=== PATIENT | female | born 1965 | race Caucasian/White ===

== ENCOUNTER 2017-06-06 10:46 | Emergency (ER) | payer MEDICARE ==
[~2017-06-06] VITALS: Ht 167.6 cm; Wt 88.0 kg
[~2017-06-06 10:46] MED LIST: CLON.5 PO; CYMB60CA PO; METH500T3 PO; NAPR550 PO; RISP0.5T2 PO; SYNT88TA PO; TAB-TAB PO
[2017-06-06 10:49] VITALS: BP 127/84; PULSE 88; RESP 20; TEMP 97.6; O2SAT 98
--- NOTE | 2017-06-06 11:32 | PD ---
HPI Chief Complaint: Psychiatric Symptoms Time Seen by Provider: 11:29 Travel History International Travel<30 days: No Contact w/Intl Traveler<30days: No Traveled to known affect area: No History of Present Illness HPI 51-year-old female that presents to the ED for evaluation of psych evaluation. Patient has a chronic history depression with suicidal ideations in the past an actual attempts. She denies any plans or suicidal ideation at this time. She comes here voluntarily after her doctor Dr. Donovan from psychiatry apparently sent her here for evaluation. She does take multiple psychiatric medications and states that she's been dealing with depression for multiple years. Per patient is become more severe in the past couple of weeks as well as months secondary to recent stresses in her life. Per patient was getting out of hand and she was seen by her psychiatrist today who recommended that she comes here to get evaluated. She was not [place] acted. She denies any substance abuse. No other medical issues. PFSH Past Medical History Arthritis: No Asthma: Yes (allergy related) Blood Disorders: No Bipolar Disorder: Yes Anxiety: Yes Depression: Yes Cancer: No Cardiovascular Problems: No High Cholesterol: No Chest Pain: No Congestive Heart Failure: No COPD: No Cerebrovascular Accident: No Diminished Hearing: Yes (BILATERAL ) Endocrine: Yes (GRAVES, HYPOGLYCEMIA) Gastrointestinal Disorders: Yes GERD: Yes Genitourinary: No Headaches: No Hepatitis: No Hiatal Hernia: No Hypertension: No Immune Disorder: No Implanted Vascular Access Dvce: No Kidney Stones: No Musculoskeletal: No Neurologic: No Psychiatric: Yes (HX OF PSYCHOSIS, SUICIDAL THOUGHTS ) Reproductive: Yes Respiratory: Yes Migraines: No Myocardial Infarction: No Renal Failure: No Seizures: No Sleep Apnea: No Thyroid Disease: Yes (graves) Ulcer: No Tetanus Vaccination: < 5 Years Influenza Vaccination: No ?: Not Tubal Ligation: Yes Past Surgical History Abdominal Surgery: No Appendectomy: No Cardiac Surgery: No Cholecystectomy: No Ear Surgery: No Endocrine Surgery: No Eye Surgery: Yes (surgery to left eye at [age] years old) Genitourinary Surgery: No Gynecologic Surgery: Yes (tubaligation) Hysterectomy: Yes (LAST 11/12/08) Neurologic Surgery: No Oral Surgery: No Thoracic Surgery: No Other Surgery: Yes Social History Alcohol Use: No Tobacco Use: Yes (1 ppd) Substance Use: No Allergies-Medications (Allergen,Severity, Reaction): Coded Allergies: Penicillin (Verified Allergy, Severe, HIVES, 06/06/17) Reported Meds & Prescriptions Reported Meds & Active Scripts Active Robaxin (Methocarbamol) 500 Mg Tab 500 Mg PO QID Anaprox Ds (Naproxen Sodium) 550 Mg Tab 550 Mg PO BID Reported Risperdal (Risperidone) 0.5 Mg Tab 0.5 Mg PO HS Multivitamin (Multivitamins) 1 Tab Tab 1 Tab PO DAILY Synthroid (Levothyroxine Sodium) 88 Mcg Tab 88 Mcg PO DAILY Cymbalta (Duloxetine HCl) 60 Mg Cap 60 Mg PO DAILY Klonopin (Clonazepam) 0.5 Mg Tab 0.5 Mg PO TID Review of Systems Except as stated in HPI: all other systems reviewed are Neg Physical Exam Narrative GENERAL: SKIN: Warm and dry. HEAD: Atraumatic. Normocephalic. EYES: Pupils equal and round. No scleral icterus. No injection or drainage. ENT: No nasal bleeding or discharge. Mucous membranes pink and moist. Tongue is midline. No uvula deviation. NECK: Trachea midline. No JVD. CARDIOVASCULAR: Regular rate and rhythm. No murmurs, S3, S4. RESPIRATORY: No accessory muscle use. Clear to auscultation. Breath sounds equal bilaterally. GASTROINTESTINAL: Abdomen soft, non-tender, nondistended. Hepatic and splenic margins not palpable. MUSCULOSKELETAL: Extremities without clubbing, cyanosis, or edema. No obvious deformities. Full range of motion of the upper and lower extremities bilaterally. 2+ pulses bilaterally. NEUROLOGICAL: Awake and alert. No obvious cranial nerve deficits. Motor grossly within normal limits. Five out of 5 muscle strength in the arms and legs. Normal speech. PSYCHIATRIC: Appropriate mood and affect; insight and judgment normal. Data Data Last Documented VS Vital Signs Date Time Temp Pulse Resp B/P Pulse Ox O2 Delivery O2 Flow Rate FiO2 06/06/17 10:49 97.6 88 20 127/84 98 Room Air Orders Complete Blood Count With Diff (06/06/17 11:02) Comprehensive Metabolic Panel (06/06/17 11:02) Psych Screen (06/06/17 11:02) Drug Screen, Random Urine (06/06/17 11:02) Alcohol (Ethanol) (06/06/17 11:02) MDM Medical Decision Making Medical Screen Exam Complete: Yes Emergency Medical Condition: Yes Medical Record Reviewed: Yes Differential Diagnosis Depression versus suicidal ideation versus anxiety versus adjustment disorder versus mood disorder versus bipolar disorder versus schizophrenia versus paranoid disorder versus psychosis versus substance abuse versus alcohol abuse versus alcohol induced psychosis versus homicidality addition versus cutting versus personality disorder Narrative Course 51-year-old female that presents to the ED for evaluation of psychiatric illness. Patient was properly examined and was found to have signs and symptoms consistent appears to be psychiatric illness. No sign of acute medical distress. Labs were drawn. Patient was medically cleared. Okay to be seen by psych. I had the ED nurse call [facility] nurse to let them know that this patient was sent by psychiatrist Dr. Donovan. Mental health screening was discussed with the patient. Diagnosis Primary Impression: Depression Qualified Code: F33.1 - Moderate episode of recurrent major depressive disorder Reg Garcia Jun 06, 2017 11:32
[2017-06-06 12:06] LABS: AUTOMATED NEUTROPHIL # 3.5 TH/MM3 (1.8-7.7); BASOPHIL # 0.1 TH/MM3 (0-0.2); BASOPHIL % 1.1 % (0.0-2.0); EOSINOPHIL # 0.3 TH/MM3 (0-0.4); EOSINOPHIL % 4.5 % (0.0-4.0); HEMATOCRIT 41.4 % (35.0-46.0); HEMO FLAGS DIFF FINAL; LYMPH % 33.3 % (9.0-44.0); LYMPHOCYTE # 2.1 TH/MM3 (1.0-4.8); MEAN CELL VOLUME 88.2 FL (80.0-100.0); MEAN CORPUSCULAR HEMOGLOBIN 29.7 PG (27.0-34.0); MEAN CORPUSCULAR HGB CONC 33.7 % (32.0-36.0); MONO % 6.5 % (0.0-8.0); NEUT % 54.6 % (16.0-70.0); PLATELET COUNT 225 TH/MM3 (150-450); RED BLOOD COUNT 4.69 MIL/MM3 (4.00-5.30); RED CELL DISTRIBUTION WIDTH 13.1 % (11.6-17.2); WHITE BLOOD COUNT 6.4 TH/MM3 (4.0-11.0)
[2017-06-06 12:25] LABS: ALT (GPT) 31 U/L (10-53); ANION GAP 7 MEQ/L (5-15); AST (GOT) 22 U/L (15-37); BICARBONATE 29.4 MEQ/L (21.0-32.0); BLOOD UREA NITROGEN 18 MG/DL (7-18); CHLORIDE 104 MEQ/L (98-107); GLOMERULAR FILTRATION RATE 73 ML/MIN (>89); SODIUM (NA) 140 MEQ/L (136-145)
[2017-06-06 12:26] LABS: AMPHETAMINE, URINE NEG (NEG); BARBITURATES, URINE NEG (NEG); COCAINE, URINE NEG (NEG)
[2017-06-06 12:28] LABS: ALKALINE PHOSPHATASE 51 U/L (45-117); TOTAL BILIRUBIN ADULT 0.3 MG/DL (0.2-1.0)
[2017-06-06 13:06] VITALS: BP 125/76; PULSE 77; RESP 16; O2SAT 99
[2017-06-06 13:20] VITALS: BP 125/75
[2017-06-06] MEDS ORDERED: CLON.5 PO (15:49)
[2017-06-06] MEDS ORDERED: DULO20 PO (15:49)
[2017-06-06] MEDS ORDERED: RISP.25 PO (15:49)
== END 2017-06-06 15:55 | disposition home or self-care (01) ==
LOC: NEPD 10:46 → NEPJ 15:55
DX: F32.9 Major depressive disorder, single episode, unspecified (principal); J45.909 Unspecified asthma, uncomplicated; F31.9 Bipolar disorder, unspecified; E05.00 Thyrotoxicosis with diffuse goiter without thyrotoxic crisis or storm; K21.9 Gastro-esophageal reflux disease without esophagitis; F41.9 Anxiety disorder, unspecified; F17.200 Nicotine dependence, unspecified, uncomplicated; Z79.899 Other long term (current) drug therapy; Z88.0 Allergy status to penicillin
CPT/HCPCS: 80053; 80307; 85025; 99284